=== PATIENT | female | born 1980 | race Caucasian/White ===

== ENCOUNTER → 2016-07-07 | Outpatient (CLI) | payer MEDICAID ==
[~2016-07-07] MED LIST: CIPROFLOXACIN500 MG PO; HCTZ PO; HYDROCHLOROTHIA25 M1 PO; IBUPROFEN800 MG PO; STOOL SOFTENER250 M1 PO
== END ==
LOC: LAB 14:33
DX: N39.0 Urinary tract infection, site not specified (principal)

== ENCOUNTER → 2016-07-10 | Outpatient (CLI) | payer MEDICAID ==
--- NOTE | 2016-07-10 14:33 | RADIOLOGY REPORT PS360 ---
CHEST(2 VIEWS-NOT PORTABLE) HISTORY: COUGH ORDERING PHYSICIAN: Joe Villafana MD PATIENT AGE: 35 years COMPARISON: None available FINDINGS: The cardiomediastinal silhouette and pulmonary vascularity are within normal limits. The lungs are clear without infiltrates, suspicious nodules, or pleural effusions. No acute bony abnormalities. There is evidence of old granulomatous disease IMPRESSION: Negative chest, no acute finding
== END ==
LOC: RAD 13:31
DX: R05 Cough (principal)

== ENCOUNTER → 2016-07-29 | Outpatient (CLI) | payer MEDICAID ==
[2016-07-29 08:58] LABS: HEMOGLOBIN 11.1 g/dL (12.2-16.2); LYMPH # 2.3 K/mm3 (0.7-4.5); LYMPH % 34.9 % (10-50.0)
[2016-07-29 10:10] LABS: BUN 13 mg/dL (7-18)
[2016-07-29 10:14] LABS: GFR (ESTIMATED) 62 ML/MIN (59-)
== END ==
LOC: LAB 08:15
PROVIDERS: Nurse Practitioner Family
DX: N39.0 Urinary tract infection, site not specified (principal)

== ENCOUNTER 2017-02-11 13:23 | Emergency (ER) | payer MEDICAID ==
[~2017-02-11] VITALS: Ht 172.7 cm; Wt 63.5 kg
--- OUTSIDE RECORDS SUMMARY | 2017-02-11 14:49 | External Medical Summary Rpt | CCD ---
Author Author , GIA NIELSEN Address Unknown Phone [email or web address] Care Team Providers Care Owner/Photographer Name Role Phone ATKINS TRA, ATKINS Unavailable Unavailable [facility] Unavailable Unavailable [facility] DAPHNE JUSTINO, DAPHNE Unavailable Unavailable [facility] Unavailable Unavailable CENTER, [facility] Unavailable Unavailable INC, [facility] Unavailable Unavailable [facility]OSPITAL, [facility] Unavailable Unavailable [facility]OSPITAL P, [facility], Unavailable Unavailable [facility], [facility]available Unavailable [facility] Unavailable Unavailable IMAGING ASS, [facility] Unavailable [facility] Unavailable Unavailable LAB, [facility] SC[facility], SCIFRES Unavailable Unavailable [facility] ANG, SCIFRES Unavailable Unavailable ANG [facility] Unavailable [place]available [place], [facility] [place] Purpose Continuity of Care Document - 03-17-2011 through 2016 Problems Code Diagnosis DOS Provider Status Z23 ENCOUNTER 12-17-2016 [facility] IMMUNIZATIO [facility] DEPT N [place] D1720 BENIGN 11-23-2016 [facility] LIPOMATOUS PHYSICIANS NEOPLSM GROUP SKIN & SUBQ UNS LIMB D1739 BENIGN 11-11-2016 [facility] LIPOMATOUS PHYSICIANS NEOPLASM GROUP SKIN & SUBQ OTH SITE D1779 BENIGN 11-11-2016 [facility] NEOPLASM OF OTHER SITES D492 NEOPLASM OF 11-11-2016 [facility] UNS ANESTH OF BEHAVIOR THE BLUE BONE SOFT TISSUE & SKIN [id number] PAIN IN 11-11-2016 [facility] RIGHT UPPER PHYSICIANS ARM GROUP [id number] REGULAR 10-22-2016 [facility] ASTIGMATISM RIGHT EYE J3089 OTHER 08-21-2016 [facility] ALLERGIC PHYSICIANS RHINITIS GROUP J370 CHRONIC 08-21-2016 [facility] LARYNGITIS PHYSICIANS GROUP R062 WHEEZING 08-21-2016 [facility] N390 URINARY 07-28-2016 [facility] TRACT PHYSICIAN INFECTION GROUP SITE NOT SPECIFIED J309 ALLERGIC 07-24-2016 [facility] RHINITIS PHYSICIANS UNSPECIFIED GROUP R05 COUGH 07-24-2016 [facility] PHYSICIANS GROUP N63 UNSPECIFIED 07-17-2016 [place] [facility] [id number] MIGRAINE 07-07-2016 [facility] UNS NOT PHYSICIANS INTRACT W/O GROUP STATUS MIGRAINOSUS J208 ACUTE 06-13-2016 [facility] BRONCHITIS PHYSICIAN DUE TO GROUP OTHER SPEC ORGANISMS J40 BRONCHITIS 03-09-2016 [facility] NOT PHYSICIANS SPECIFIED GROUP ACUTE OR CHRONIC J0190 ACUTE 11-16-2015 [facility] SINUSITIS PHYSICIAN UNSPECIFIED GROUP L237 ALLERGIC 11-16-2015 [facility] CONTACT PHYSICIAN DERMATITIS GROUP D/T PLANTS EXCP FOOD B394 HISTOPLASMO 09-12-2015 [facility] SIS CAPSULATI UNSPECIFIED [id number] ENCOUNTER 04-16-2015 [facility] 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 GENERAL RTN W/O ABNORMAL FIND 5990 URINARY 12-01-2014 [facility] SITE NOT SPECIFIED V2543 SURVEILLANC 11-05-2014 [facility] E PREV PRSC PHYSICIANS IMPL GROUP SUBDERMAL CONTRACEPT V255 INSERTION 11-05-2014 [facility] OF PHYSICIANS IMPLANTABLE GROUP SUBDERMAL CONTRACEPTI VE V069 NEED PROPH 10-02-2014 [facility] W/UNSPEC [facility] DEPT COMB [place] VACCINE 97439 REGULAR 09-20-2014 [facility] ASTIGMATISM 4779 ALLERGIC 09-12-2014 [facility] RHINITIS PHYSICIANS CAUSE GROUP UNSPECIFIED 4610 ACUTE 07-29-2014 [facility] 2167 BENIGN 07-12-2014 AT[facility] TRA NEOPLASM SKIN LOWER LIMB INCLUDING HIP 2281 LYMPHANGIOM 07-12-2014 [facility] TRA A, ANY SITE 08588 OTHER 07-12-2014 [facility] TRA CHRONIC DERMATITIS DUE TO SOLAR RADIATION 69725 UNSPECIFIED 02-20-2014 [facility] TRA VIRAL WARTS V7231 ROUTINE 02-06-2014 [facility] AL EXAMINATION 591 HYDRONEPHRO 01-18-2014 [facility] P 55985 CONGENITAL 01-18-2014 [facility] P URETEROPELV IC JUNCTION V0481 NEED 01-16-2014 [facility] PROPHYLACTI PHYSICIANS C GROUP VACCINATION &INOCULATIO N FLU 5909 UNSPECIFIED 01-08-2014 [place] [facility] V1302 PERSONAL 01-08-2014 [place] [facility] MEDICAL URINARY IMAGING ASS TRACT INFECTION 5959 UNSPECIFIED 01-04-2014 [place] [facility] P 7242 LUMBAGO 12-15-2013 [facility] 57114 OTHER 12-04-2013 AT[facility] TRA SPECIFIED VIRAL WARTS 2165 BENIGN 12-04-2013 AT[facility] TRA NEOPLASM OF SKIN OF TRUNK EXCEPT SCROTUM 38413 HISTOPLASMA 09-14-2013 [facility] CAPSULATUM RETINITIS 41191 FEVER 09-06-2013 DAPHNE JUSTINO UNSPECIFIED 03686 PLANTAR 08-03-2013 DAPHNE JUSTINO WART 2662 OTHER 03-17-2011 [facility] S V1589 OTH SPEC 03-17-2011 PATHOLOGY & PERS HX CYTOLOGY PRESENTING LAB HAZARDS HEALTH OT V2549 SURVEILLANC 03-17-2011 [facility] SC E OTH PREV [facility] CENTER CONTRACEPT METHOD Allergies, Adverse Reactions, Alerts Clinical Alert Notifications Alert Asthma: ICS non-compliance with h/o of SA beta agonist Asthma: non-ICS non-compliance with h/o of SA beta agonist Medications Na ND Rx Da Fi Fi Am Da Di Ph RX Ph St me C No te ll ll ou ys ag ar # ys at rm s nt no ma ic us Or Da si cy ia de te s n re d LO 45 10 11 30 30 00 HO Ac RA 80 -3 -2 .0 00 ME ti TA 20 1- 4- 00 06 TO ve DI 65 20 20 07 WN NE 08 17 17 74 7 61 PH 10 AR MA MG CY TA OF BL ET CY NT HI AN A BI 29 10 11 30 30 00 HO Ac SO 30 -2 -2 .0 00 ME ti NC 00 7- 4- 00 06 TO ve OL 18 20 20 09 WN OL 70 17 17 49 -H [address] AR Z MA 2. CY 5- 6. OF 25 CY MG NT HI TB AN A LO 45 10 11 30 30 00 HO Ac RA 80 -0 -0 .0 00 ME ti TA 20 5- 3- 00 06 TO ve DI 65 20 20 07 WN NE 08 17 17 74 7 61 PH 10 AR MA MG CY TA OF BL ET CY NT HI AN A BI 29 09 10 30 30 00 HO Ac SO 30 -2 -2 .0 00 ME ti NC 00 5- 0- 00 06 TO ve OL 18 20 20 09 WN OL 70 17 17 49 -H [address] AR Z MA 2. CY 5- 6. OF 25 CY MG NT HI TB AN A LO 45 09 10 30 30 00 HO Ac RA 80 -0 -0 .0 00 ME ti TA 20 8- 6- 00 06 TO ve DI 65 20 20 07 WN NE 08 17 17 74 7 61 PH 10 AR MA MG CY TA OF BL ET CY NT HI AN A HY 00 09 09 [address] 60 -0 -2 .0 00 ME ti OC 33 6- 9- 00 02 TO ve OD 89 20 20 01 WN ON 03 17 17 45 -A 2 55 PH CE AR TA MA IA CY NO PH OF EN CY 5- NT 32 HI 5 AN A BI 29 08 09 30 30 00 HO Ac SO 30 -2 -2 .0 00 ME ti NC 00 8- 2- 00 06 TO ve OL 18 20 20 07 WN OL 70 17 17 74 -H [address] AR Z MA 2. CY 5- 6. OF 25 CY MG NT HI TB AN A LO 45 08 09 30 30 00 HO Ac RA 80 -0 -0 .0 00 ME ti TA 20 7- 1- 00 06 TO ve DI 65 20 20 07 WN NE 08 17 17 74 7 61 PH 10 AR MA MG CY TA OF BL ET CY NT HI AN A BI 29 08 08 30 30 00 HO Ac SO 30 -0 -2 .0 00 ME ti NC 00 1- 5- 00 06 TO ve OL 18 20 20 07 WN OL 70 17 17 74 -H [address] AR Z MA 2. CY 5- 6. OF 25 CY MG NT HI TB AN A LO 45 07 07 30 30 00 HO Ac RA 80 -0 -2 .0 00 ME ti TA 20 3- 8- 00 06 TO ve DI 65 20 20 07 WN NE 08 17 17 74 7 61 PH 10 AR MA MG CY TA OF BL ET CY NT HI AN A BI 29 06 07 30 30 00 HO Ac SO 30 -3 -2 .0 00 ME ti NC 00 0- 8- 00 06 TO ve OL 18 20 20 07 WN OL 70 17 17 74 -H [address] AR Z MA 2. CY 5- 6. OF 25 CY MG NT HI TB AN A BI 29 05 06 30 30 00 HO Ac SO 30 -3 -2 .0 00 ME ti NC 00 1- 3- 00 06 TO ve OL 18 20 20 07 WN OL 70 17 17 74 -H [address] AR Z MA 2. CY 5- 6. OF 25 CY MG NT HI TB AN A CE 68 05 06 20 10 00 HO Ac PH 18 -3 -2 .0 00 ME ti AL 00 0- 3- 00 06 TO ve EX 12 20 20 08 WN IN 20 17 17 78 2 66 PH 50 AR 0 MA MG CY CA OF PS UL CY E NT HI AN A MO 68 05 06 30 30 00 HO Ac NT 00 -1 -1 .0 00 ME ti EL 10 9- 6- 00 06 TO ve UK 24 20 20 08 WN 80 17 17 73 T 3 52 PH SO AR D MA 10 CY MG OF TA CY BL NT ET HI AN A ME 68 05 06 21 6 00 HO Ac TH 00 -1 -1 .0 00 ME ti YL 10 9- 6- 00 06 TO ve NC 00 20 20 08 WN ED 50 17 17 73 NI 1 53 PH SO AR LO MA NE CY 4 OF MG CY DO NT SE HI PK AN A CE 68 05 06 20 10 00 HO Ac PH 18 -2 -1 .0 00 ME ti AL 00 3- 6- 00 06 TO ve EX 12 20 20 08 WN IN 20 17 17 76 2 05 PH 50 AR 0 MA MG CY CA OF PS UL CY E NT HI AN A RE 00 05 06 6. 23 00 HO Ac LP 04 -0 -0 00 00 ME ti AX 92 8- 2- 0 06 TO ve 34 20 20 07 WN 40 04 17 17 74 5 63 PH MG AR MA TA CY BL ET OF CY NT HI AN A BI 29 05 05 30 30 00 HO Ac SO 30 -0 -2 .0 00 ME ti NC 00 1- 6- 00 06 TO ve OL 18 20 20 07 WN OL 70 17 17 74 -H [address] AR Z MA 2. CY 5- 6. OF 25 CY MG NT HI TB AN A LO 45 05 05 30 30 00 HO Ac RA 80 -0 -2 .0 00 ME ti TA 20 1- 6- 00 06 TO ve DI 65 20 20 06 WN NE 08 17 17 53 7 67 PH 10 AR MA MG CY TA OF BL ET CY NT HI AN A CI 16 05 05 14 7 00 HO Ac NC 57 -0 -2 .0 00 ME ti OF 10 2- 6- 00 06 TO ve LO 41 20 20 08 WN XA 25 17 17 62 CI 0 10 PH N AR HC MA L CY 50 0 OF MG CY TA NT B HI AN A NC 00 04 05 10 5 00 WA Ac ED 14 -0 -0 .0 00 L- ti NI 39 8- 5- 00 07 MA ve SO 73 20 20 48 RT NE 80 17 17 11 5 75 PH 20 AR MA MG CY TA #5 BL 91 ET VE 00 04 05 18 17 00 WA Ac NT 17 -0 -0 .0 00 L- ti OL 30 8- 5- 00 07 MA ve IN 68 20 20 48 RT 22 17 17 11 HF 0 76 PH A AR 90 MA CY MC G #5 IN 91 [place] LE R BR 60 04 05 18 3 00 WA Ac OM 43 -0 -0 0. 00 L- ti PH 20 8- 5- 00 07 MA ve EN 27 20 20 0 48 RT IR 51 17 17 11 -P 6 77 PH SE AR UD MA OE CY PH ED #5 -D 91 M SY R BI 29 03 04 30 30 00 HO Ac SO 30 -3 -2 .0 00 ME ti NC 00 0- 8- 00 06 TO ve OL 18 20 20 07 WN OL 70 17 17 74 -H [address] AR Z MA 2. CY 5- 6. OF 25 CY MG NT HI TB AN A BI 29 03 03 30 30 00 HO Ac SO 30 -0 -3 .0 00 ME ti NC 00 2- 1- 00 06 TO ve OL 18 20 20 07 WN OL 70 17 17 65 -H [address] AR Z MA 2. CY 5- 6. OF 25 CY MG NT HI TB AN A VE 00 03 03 18 17 00 HO Ac NT 17 -0 -3 .0 00 ME ti OL 30 6- 1- 00 06 TO ve IN 68 20 20 08 WN 22 17 17 26 HF 0 44 PH A AR 90 MA CY MC G OF IN [place] CY LE NT R HI AN A BI 29 01 02 30 30 00 HO Ac SO 30 -3 -2 .0 00 ME ti NC 00 0- 4- 00 06 TO ve OL 18 20 20 07 WN OL 70 17 17 65 -H [address] AR Z MA 2. CY 5- 6. OF 25 CY MG NT HI TB AN A SY 00 01 02 10 30 00 HO Ac MB 18 -1 -0 .1 00 ME ti IC 60 1- 3- 99 06 TO ve OR 37 20 20 07 WN T 02 17 17 74 16 0 59 PH 0- AR 4. MA 5 CY MC G OF IN [place] CY LE NT R HI AN A BR 64 01 01 18 3 00 HO Ac OM 37 -0 -2 0. 00 ME ti PH 60 2- 7- 00 06 TO ve EN 65 20 20 0 07 WN IR 71 17 17 87 -P 6 24 PH SE AR UD MA OE CY PH ED OF -D M CY SY NT R HI AN A NC 59 01 01 10 5 00 HO Ac ED 74 -0 -2 .0 00 ME ti NI 60 2- 7- 00 06 TO ve SO 17 20 20 07 WN NE 50 17 17 87 9 23 PH 20 AR MA MG CY TA OF BL ET CY NT HI AN A LO 45 01 01 30 30 00 HO Ac RA 80 -0 -2 .0 00 ME ti TA 20 2- 7- 00 06 TO ve DI 65 20 20 06 WN NE 08 17 17 53 7 67 PH 10 AR MA MG CY TA OF BL ET CY NT HI AN A BI 29 01 01 30 30 00 HO Ac SO 30 -0 -2 .0 00 ME ti NC 00 2- 7- 00 06 TO ve OL 18 20 20 07 WN OL 70 17 17 65 -H [address] AR Z MA 2. CY 5- 6. OF 25 CY MG NT HI TB AN A SY 00 12 01 10 30 00 HO Ac MB 18 -1 -1 .1 00 ME ti IC 60 3- 3- 99 06 TO ve OR 37 20 20 07 WN T 02 16 17 74 16 0 59 PH 0- AR 4. MA 5 CY MC G OF IN [place] CY LE NT R HI AN A MO 68 12 01 30 30 00 HO Ac NT 00 -1 -1 .0 00 ME ti EL 10 3- 3- 00 06 TO ve UK 24 20 20 07 WN 80 16 17 74 T 3 60 PH SO AR D MA 10 CY MG OF TA CY BL NT ET HI AN A RE 00 12 01 6. 23 00 HO Ac LP 04 -1 -1 00 00 ME ti AX 92 3- 3- 0 06 TO ve 34 20 20 07 WN 40 04 16 17 74 5 63 PH MG AR MA TA CY BL ET OF CY NT HI AN A Encounters Encounter Start End Date Code Location Performer Type Date [facility] - 5 5 [facility] - 4 4 [facility] - 4 4 [facility] - 4 4 [facility] - 4 4 [facility] - 4 4 [facility]
--- OUTSIDE RECORDS SUMMARY | 2017-02-11 14:49 | External Medical Summary Rpt | CCD ---
Author Author , GIA NIELSEN Address Unknown Phone [email or web address] Care Team Providers Care Casino Dealer Name Role Phone ATKINS TRA, ATKINS Unavailable Unavailable [facility] Unavailable Unavailable [facility] DAPHNE JUSTINO, DAPHNE Unavailable Unavailable [facility] Unavailable Unavailable CENTER, [facility] Unavailable Unavailable INC, [facility] Unavailable Unavailable HOSPITAL, [facility] Unavailable Unavailable HOSPITAL P, [facility], Unavailable Unavailable [facility], [facility]available Unavailable [facility] Unavailable Unavailable [facility], [facility] Unavailable [facility] Unavailable Unavailable LAB, [facility] SCIF[facility], SCIFRES Unavailable Unavailable [facility] ANG, SCIFRES Unavailable Unavailable ANG [facility] Unavailable [place]available [place], [facility] [place] Purpose Continuity of Care Document - 03-17-2011 through 2016 Problems Code Diagnosis DOS Provider Status Z23 ENCOUNTER 12-17-2016 [facility] IMMUNIZATIO [facility] DEPT N [place] D1720 BENIGN 11-23-2016 [facility] LIPOMATOUS PHYSICIANS NEOPLSM GROUP SKIN & SUBQ UNS LIMB D1739 BENIGN 11-11-2016 [facility] LIPOMATOUS PHYSICIANS NEOPLASM GROUP SKIN & SUBQ OTH SITE D1779 BENIGN 11-11-2016 [facility] NEOPLASM OF OTHER SITES D492 NEOPLASM OF 11-11-2016 [facility] UNS ANESTH OF BEHAVIOR THE BLUE BONE SOFT TISSUE & SKIN [id number] PAIN IN 11-11-2016 [facility] RIGHT UPPER PHYSICIANS ARM GROUP [id number] REGULAR 10-22-2016 [facility] ASTIGMATISM RIGHT EYE J3089 OTHER 08-21-2016 [facility] ALLERGIC PHYSICIANS RHINITIS GROUP J370 CHRONIC 08-21-2016 [facility] LARYNGITIS PHYSICIANS GROUP R062 WHEEZING 08-21-2016 [facility] N390 URINARY 07-28-2016 [facility] TRACT PHYSICIAN INFECTION GROUP SITE NOT SPECIFIED J309 ALLERGIC 07-24-2016 [facility] RHINITIS PHYSICIANS UNSPECIFIED GROUP R05 COUGH 07-24-2016 [facility] GROUP N63 UNSPECIFIED 07-17-2016 [place] [facility] V83371 MIGRAINE 07-07-2016 [facility] UNS NOT PHYSICIANS INTRACT W/O GROUP STATUS MIGRAINOSUS J208 ACUTE 06-13-2016 [facility] BRONCHITIS PHYSICIAN DUE TO GROUP OTHER SPEC ORGANISMS J40 BRONCHITIS 03-09-2016 [facility] NOT PHYSICIANS SPECIFIED GROUP ACUTE OR CHRONIC J0190 ACUTE 11-16-2015 [facility] SINUSITIS PHYSICIAN UNSPECIFIED GROUP L237 ALLERGIC 11-16-2015 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 E PREV PRSC PHYSICIANS IMPL GROUP SUBDERMAL CONTRACEPT V255 INSERTION 11-05-2014 [facility] OF PHYSICIANS IMPLANTABLE GROUP SUBDERMAL CONTRACEPTI VE V069 NEED PROPH 10-02-2014 [facility] W/UNSPEC [facility] DEPT COMB [place] VACCINE 03057 REGULAR 09-20-2014 [facility] ASTIGMATISM 4779 ALLERGIC 09-12-2014 [facility] RHINITIS PHYSICIANS CAUSE GROUP UNSPECIFIED 4610 ACUTE 07-29-2014 [facility] 2167 BENIGN 07-12-2014 [facility] NEOPLASM SKIN LOWER LIMB INCLUDING HIP 2281 LYMPHANGIOM 07-12-2014 [facility] TRA A, ANY SITE 32856 OTHER 07-12-2014 [facility] TRA CHRONIC DERMATITIS DUE TO SOLAR RADIATION 73784 UNSPECIFIED 02-20-2014 [facility] TRA VIRAL WARTS V7231 ROUTINE 02-06-2014 [facility] AL EXAMINATION 591 HYDRONEPHRO 01-18-2014 [facility] P 85684 CONGENITAL 01-18-2014 [facility] P URETEROPELV IC JUNCTION V0481 NEED 01-16-2014 [facility] PROPHYLACTI PHYSICIANS C GROUP VACCINATION &INOCULATIO N FLU 5909 UNSPECIFIED 01-08-2014 [place] [facility] V1302 PERSONAL 01-08-2014 [place] [facility] URINARY IMAGING ASS TRACT INFECTION 5959 UNSPECIFIED 01-04-2014 [facility] P 7242 LUMBAGO 12-15-2013 [facility] 05396 OTHER 12-04-2013 AT[facility] TRA SPECIFIED VIRAL WARTS 2165 BENIGN 12-04-2013 ATK[facility] TRA NEOPLASM OF SKIN OF TRUNK EXCEPT SCROTUM 39795 HISTOPLASMA 09-14-2013 [facility] CAPSULATUM RETINITIS 44910 FEVER 09-06-2013 DAPHNE JUSTINO UNSPECIFIED 27205 PLANTAR 08-03-2013 DAPHNE JUSTINO WART 2662 OTHER 03-17-2011 [facility] S V1589 OTH SPEC 03-17-2011 PATHOLOGY & PERS HX CYTOLOGY PRESENTING LAB HAZARDS HEALTH OT V2549 SURVEILLANC 03-17-2011 [facility] ME E O[facility] CONTRACEPT [...] 30 -2 -2 .0 00 ME ti AL 00 7- 4- 00 06 TO ve [...] 30 -2 -2 .0 00 ME ti AL 00 5- 0- 00 06 TO ve [...] 2 55 PH CE AR TA MA AK CY NO PH OF EN CY 5- NT 32 HI 5 AN A BI 29 08 09 30 30 00 HO Ac SO 30 -2 -2 .0 00 ME ti AL 00 8- 2- 00 06 TO ve [...] 30 -0 -2 .0 00 ME ti AL 00 1- 5- 00 06 TO ve [...] 30 -3 -2 .0 00 ME ti AL 00 0- 8- 00 06 TO ve OL 18 20 20 07 WN OL 70 17 17 74 -H [address] AR Z MA 2. CY 5- 6. OF 25 CY MG NT HI TB AN A BI 29 05 06 30 30 00 HO Ac SO 30 -3 -2 .0 00 ME ti AL 00 1- 3- 00 06 TO ve [...] 10 9- 6- 00 06 TO ve AL 00 20 20 08 WN ED 50 [...] 30 -0 -2 .0 00 ME ti AL 00 1- 6- 00 06 TO ve [...] 05 05 14 7 00 HO Ac AL 57 -0 -2 .0 00 ME ti OF 10 2- 6- 00 06 TO ve LO 41 20 20 08 WN XA 25 17 17 62 CI 0 10 PH N AR HC MA L CY 50 0 OF MG CY TA NT B HI AN A AL 00 04 05 10 5 00 WA [...] 30 -3 -2 .0 00 ME ti AL 00 0- 8- 00 06 TO ve OL 18 20 20 07 WN OL 70 17 17 74 -H [address] AR Z MA 2. CY 5- 6. OF 25 CY MG NT HI TB AN A BI 29 03 03 30 30 00 HO Ac SO 30 -0 -3 .0 00 ME ti AL 00 2- 1- 00 06 TO ve [...] 30 -3 -2 .0 00 ME ti AL 00 0- 4- 00 06 TO ve [...] CY SY NT R HI AN A AL 59 01 01 10 5 00 HO [...] 30 -0 -2 .0 00 ME ti AL 00 2- 7- 00 06 TO ve [...] End Date Code Location Performer Type Date [facility] - 5 5 [facility] - 4 4 [facility] RADHA - 4 4 [facility] RADHA - 4 4 [facility] 4 4 [facility] RAD[facility] - 4 4 [facility] - 4 4 [facility]
--- OUTSIDE RECORDS SUMMARY | 2017-02-11 14:51 | External Medical Summary Rpt | CCD ---
Author Author , GIA NIELSEN Address Unknown Phone [email or web address] Care Team Providers Care Assurance Services Manager Health Care Name Role Phone ATKINS TRA, ATKINS Unavailable Unavailable TRA [facility] Unavailable Unavailable [facility], [facility]UE DAPHNE JUSTINO, DAPHNE Unavailable Unavailable [facility] Unavailable Unavailable [facility], [facility] Unavailable Unavailable [facility], [facility] Unavailable Unavailable [facility], [facility] Unavailable Unavailable [facility]PITAL P, [facility], Unavailable Unavailable [facility], Unavailable Unavailable [facility] Unavailable Unavailable [facility], [facility] Unavailable [facility] Unavailable Unavailable LAB, [facility] SCIFRES, SCIFRES Unavailable Unavailable SC[facility] ANG, SCIFRES Unavailable Unavailable ANG [facility] Unavailable [place]available [place], [facility] [place] Purpose Continuity of Care Document - 03-17-2011 through 2016 Problems Code Diagnosis DOS Provider Status Z23 ENCOUNTER 12-17-2016 [facility] IMMUNIZATIO [facility] DEPT N [place] D1720 BENIGN 11-23-2016 [facility] LIPOMATOUS PHYSICIANS NEOPLSM GROUP SKIN & SUBQ UNS LIMB D1739 BENIGN 11-11-2016 [facility] LIP[facility]OUS PHYSICIANS NEOPLASM GROUP SKIN & SUBQ OTH SITE D1779 BENIGN 11-11-2016 [facility] NEOPLASM OF OTHER SITES D492 NEOPLASM OF 11-11-2016 [facility] UNS ANESTH OF BEHAVIOR THE BLUE BONE SOFT TISSUE & SKIN [id number] PAIN IN 11-11-2016 [facility] RIGHT UPPER PHYSICIANS ARM GROUP [id number] REGULAR 10-22-2016 [facility] ASTIGMATISM RIGHT EYE J3089 OTHER 08-21-2016 [facility] ALLERGIC PHYSICIANS RHINITIS GROUP J370 CHRONIC 08-21-2016 [facility] LARYNGITIS PHYSICIANS GROUP R062 WHEEZING 08-21-2016 [facility] N390 URINARY 07-28-2016 [facility] TRACT PHYSICIAN INFECTION GROUP SITE NOT SPECIFIED J309 ALLERGIC 07-24-2016 [facility] RHINITIS PHYSICIANS UNSPECIFIED GROUP R05 COUGH 07-24-2016 [facility] N63 UNSPECIFIED 07-17-2016 [place] [facility] [id number] MIGRAINE 07-07-2016 [facility] UNS NOT PHYSICIANS INTRACT W/O GROUP STATUS MIGRAINOSUS J208 ACUTE 06-13-2016 [facility] BRONCHITIS PHYSICIAN DUE TO GROUP OTHER SPEC ORGANISMS J40 BRONCHITIS 03-09-2016 [facility] NOT PHYSICIANS SPECIFIED GROUP ACUTE OR CHRONIC J0190 ACUTE 11-16-2015 [facility] SINUSITIS PHYSICIAN UNSPECIFIED GROUP L237 ALLERGIC 11-16-2015 [facility] CONTACT PHYSICIAN DERMATITIS GROUP D/T PLANTS EXCP FOOD B394 HISTOPLASMO 09-12-2015 [facility] SIS CAPSULATI UNSPECIFIED [id number] ENCOUNTER 04-16-2015 [facility] 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 GENERAL RTN W/O ABNORMAL FIND 5990 URINARY 12-01-2014 [facility]PITAL SITE NOT SPECIFIED V2543 SURVEILLANC 11-05-2014 [facility] E PREV PRSC PHYSICIANS IMPL GROUP SUBDERMAL CONTRACEPT V255 INSERTION 11-05-2014 [facility] OF PHYSICIANS IMPLANTABLE GROUP SUBDERMAL CONTRACEPTI VE V069 NEED PROPH 10-02-2014 [facility] W/UNSPEC [facility] DEPT COMB [place] VACCINE 44311 REGULAR 09-20-2014 [facility] ANG ASTIGMATISM 4779 ALLERGIC 09-12-2014 [facility] RHINITIS PHYSICIANS CAUSE GROUP UNSPECIFIED 4610 ACUTE 07-29-2014 [facility]OSPITAL 2167 BENIGN 07-12-2014 AT[facility] TRA NEOPLASM SKIN LOWER LIMB INCLUDING HIP 2281 LYMPHANGIOM 07-12-2014 ATKINS TRA A, ANY SITE 86467 OTHER 07-12-2014 AT[facility] TRA CHRONIC DERMATITIS DUE TO SOLAR RADIATION 07320 UNSPECIFIED 02-20-2014 ATKINS TRA VIRAL WARTS V7231 ROUTINE 02-06-2014 [facility]YNECOLOGIC [facility] AL EXAMINATION 591 HYDRONEPHRO 01-18-2014 [facility] P 84818 CONGENITAL 01-18-2014 [facility] P URETEROPELV IC JUNCTION V0481 NEED 01-16-2014 [facility] PROPHYLACTI PHYSICIANS C GROUP VACCINATION &INOCULATIO N FLU 5909 UNSPECIFIED 01-08-2014 [place] [facility] V1302 PERSONAL 01-08-2014 [place] [facility] URINARY IMAGING ASS TRACT INFECTION 5959 UNSPECIFIED 01-04-2014 [place] [facility] P 7242 LUMBAGO 12-15-2013 [facility] INC 29271 OTHER 12-04-2013 ATK[facility] TRA SPECIFIED VIRAL WARTS 2165 BENIGN 12-04-2013 ATKINS TRA NEOPLASM OF SKIN OF TRUNK EXCEPT SCROTUM 80905 HISTOPLASMA 09-14-2013 [facility] CAPSULATUM RETINITIS 12069 FEVER 09-06-2013 DAPHNE JUSTINO UNSPECIFIED 87362 PLANTAR 08-03-2013 DAPHNE JUSTINO WART 2662 OTHER 03-17-2011 [facility] S V1589 OTH SPEC 03-17-2011 PATHOLOGY & PERS HX CYTOLOGY PRESENTING LAB [facility] OTH V2549 SURVEILLANC 03-17-2011 [facility] E OTH PREV HEALTH PRSC CENTER CONTRACEPT METHOD Medications Na ND Rx Da Fi Fi [...] 30 -2 -2 .0 00 ME ti OH 00 7- 4- 00 06 TO ve [...] 30 -2 -2 .0 00 ME ti OH 00 5- 0- 00 06 TO ve [...] 2 55 PH CE AR TA MA UT CY NO PH OF EN CY 5- NT 32 HI 5 AN A BI 29 08 09 30 30 00 HO Ac SO 30 -2 -2 .0 00 ME ti [place] 00 8- 2- 00 06 TO ve [...] 30 -0 -2 .0 00 ME ti OH 00 1- 5- 00 06 TO ve [...] 30 -3 -2 .0 00 ME ti OH 00 0- 8- 00 06 TO ve [...] UL CY E NT HI AN A BI 29 05 06 30 30 00 HO Ac SO 30 -3 -2 .0 00 ME ti OH 00 1- 3- 00 06 TO ve [...] 10 9- 6- 00 06 TO ve OH 00 20 20 08 WN ED 50 17 17 73 NI 1 53 PH SO AR LO MA NE CY 4 OF MG CY DO NT SE HI PK AN A RE 00 05 06 6. [...] 30 -0 -2 .0 00 ME ti OH 00 1- 6- 00 06 TO ve [...] 05 05 14 7 00 HO Ac OH 57 -0 -2 .0 00 ME ti OF 10 2- 6- 00 06 TO ve LO 41 20 20 08 WN XA 25 17 17 62 CI 0 10 PH N AR HC MA L CY 50 0 OF MG CY TA NT B HI AN A OH 00 04 05 10 5 00 WA [...] 30 -3 -2 .0 00 ME ti OH 00 0- 8- 00 06 TO ve OL 18 20 20 07 WN OL 70 17 17 74 -H [address] AR Z MA 2. CY 5- 6. OF 25 CY MG NT HI TB AN A BI 29 03 03 30 30 00 HO Ac SO 30 -0 -3 .0 00 ME ti OH 00 2- 1- 00 06 TO ve [...] 30 -3 -2 .0 00 ME ti OH 00 0- 4- 00 06 TO ve [...] CY SY NT R HI AN A BI 29 01 01 30 30 00 HO Ac SO 30 -0 -2 .0 00 ME ti OH 00 2- 7- 00 06 TO ve OL 18 20 20 07 WN OL 70 17 17 65 -H [address] AR Z MA 2. CY 5- 6. OF 25 CY MG NT HI TB AN A LO 45 01 01 30 30 00 HO Ac RA 80 -0 -2 .0 00 ME ti TA 20 2- 7- 00 06 TO ve DI 65 20 20 06 WN NE 08 17 17 53 7 67 PH 10 AR MA MG CY TA OF BL ET CY NT HI AN A OH 59 01 01 10 5 00 HO Ac ED 74 -0 -2 .0 00 ME ti NI 60 2- 7- 00 06 TO ve SO 17 20 20 07 WN NE 50 17 17 87 9 23 PH 20 AR MA MG CY TA OF BL ET CY NT HI AN A SY 00 12 01 10 [...] End Date Code Location Performer Type Date [facility] RADHA - 5 5 [facility] RADHA - 4 4 [facility] RAD[facility] - 4 4 [facility] RAD[facility] - 4 4 [facility] - 4 4 [facility] 4 [facility] - 4 4 [facility] 4 [facility]
--- OUTSIDE RECORDS SUMMARY | 2017-02-11 14:51 | External Medical Summary Rpt | CCD ---
Author Author , GIA NIELSEN Address Unknown Phone [email or web address] Care Team Providers Care National Business Director Name Role Phone ATKINS TRA, ATKINS Unavailable Unavailable TRA [facility] Unavailable Unavailable THE [facility], [facility] THE [facility]UE DAPHNE JUSTINO, DAPHNE Unavailable Unavailable [facility] Unavailable Unavailable CENTER, [facility] Unavailable Unavailable INC, [facility] Unavailable Unavailable HOSPITAL, [facility] Unavailable Unavailable [facility] P, [facility], Unavailable Unavailable [facility], Unavailable Unavailable [facility] Unavailable Unavailable [facility], [facility] Unavailable [facility] Unavailable Unavailable LAB, [facility] SCIFRES, SCIFRES Unavailable Unavailable SC[facility] ANG, SCIFRES Unavailable Unavailable ANG [facility] Unavailable [place]available [place], [facility] [place] Purpose Continuity of Care Document - 03-17-2011 through 2016 Problems Code Diagnosis DOS Provider Status Z23 ENCOUNTER 12-17-2016 [facility] IMMUNIZATIO [facility] DEPT N [place] D1720 BENIGN 11-23-2016 [facility] LIPOMATOUS PHYSICIANS NEOPLSM GROUP SKIN & SUBQ UNS LIMB D1739 BENIGN 11-11-2016 [facility] LIPOMATOUS PHYSICIANS NEOPLASM GROUP SKIN & SUBQ OTH SITE D1779 BENIGN 11-11-2016 [facility] NEOPLASM OF OTHER SITES D492 NEOPLASM OF 11-11-2016 [facility] UNS ANESTH OF BEHAVIOR THE BLUE BONE SOFT TISSUE & SKIN [id number] PAIN IN 11-11-2016 [facility] RIGHT UPPER PHYSICIANS ARM GROUP P87461 REGULAR 10-22-2016 [facility] ASTIGMATISM RIGHT EYE J3089 OTHER 08-21-2016 [facility] ALLERGIC PHYSICIANS RHINITIS GROUP J370 CHRONIC 08-21-2016 [facility] LARYNGITIS PHYSICIANS GROUP R062 WHEEZING 08-21-2016 [facility] PHYSICIANS GROUP N390 URINARY 07-28-2016 [facility] TRACT PHYSICIAN INFECTION GROUP SITE NOT SPECIFIED J309 ALLERGIC 07-24-2016 [facility] RHINITIS PHYSICIANS UNSPECIFIED GROUP R05 COUGH 07-24-2016 [facility] PHYSICIANS GROUP N63 UNSPECIFIED 07-17-2016 [place] [facility] F62123 MIGRAINE 07-07-2016 [facility] UNS NOT PHYSICIANS INTRACT W/O GROUP STATUS MIGRAINOSUS J208 ACUTE 06-13-2016 [facility] BRONCHITIS PHYSICIAN DUE TO GROUP OTHER SPEC ORGANISMS J40 BRONCHITIS 03-09-2016 [facility] NOT PHYSICIANS SPECIFIED GROUP ACUTE OR CHRONIC J0190 ACUTE 11-16-2015 [facility] SINUSITIS PHYSICIAN UNSPECIFIED GROUP L237 ALLERGIC 11-16-2015 [facility] CONTACT PHYSICIAN DERMATITIS GROUP D/T PLANTS EXCP FOOD B394 HISTOPLASMO 09-12-2015 [facility] SIS CAPSULATI UNSPECIFIED X76808 ENCOUNTER 04-16-2015 [facility] [employer] SALES CONSULTANT EXAM LLC GENERAL RTN W/O ABNORMAL FIND 5990 URINARY 12-01-2014 [facility] SITE NOT SPECIFIED V2543 SURVEILLANC 11-05-2014 [facility] E PREV PRSC PHYSICIANS IMPL GROUP SUBDERMAL CONTRACEPT V255 INSERTION 11-05-2014 [facility] OF PHYSICIANS IMPLANTABLE GROUP SUBDERMAL CONTRACEPTI VE V069 NEED PROPH 10-02-2014 [facility] W/UNSPEC [facility] DEPT COMB [place] VACCINE 11051 REGULAR 09-20-2014 [facility] ASTIGMATISM 4779 ALLERGIC 09-12-2014 [facility] RHINITIS PHYSICIANS CAUSE GROUP UNSPECIFIED 4610 ACUTE 07-29-2014 [facility] 2167 BENIGN 07-12-2014 [facility] NEOPLASM SKIN LOWER LIMB INCLUDING HIP 2281 LYMPHANGIOM 07-12-2014 [facility] TRA A, ANY SITE 66053 OTHER 07-12-2014 [facility] CHRONIC DERMATITIS DUE TO SOLAR RADIATION 42147 UNSPECIFIED 02-20-2014 [facility] VIRAL WARTS V7231 ROUTINE 02-06-2014 [facility] AL EXAMINATION 591 HYDRONEPHRO 01-18-2014 [facility] P 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 [facility] P URETEROPELV IC JUNCTION V0481 NEED 01-16-2014 [facility] PROPHYLACTI PHYSICIANS C GROUP VACCINATION &INOCULATIO N FLU 5909 UNSPECIFIED 01-08-2014 [place] [facility] IM[facility] V1302 PERSONAL 01-08-2014 [place] [facility]ICAL URINARY IMAGING ASS TRACT INFECTION 5959 UNSPECIFIED 01-04-2014 [place] [facility] P 7242 LUMBAGO 12-15-2013 [facility] 33070 OTHER 12-04-2013 [facility] SPECIFIED VIRAL WARTS 2165 BENIGN 12-04-2013 [facility] NEOPLASM OF SKIN OF TRUNK EXCEPT SCROTUM 42942 HISTOPLASMA 09-14-2013 [facility] CAPSULATUM RETINITIS 91009 FEVER 09-06-2013 DAPHNE JUSTINO UNSPECIFIED 71669 PLANTAR 08-03-2013 DAPHNE JUSTINO WART 2662 OTHER [...] 30 -2 -2 .0 00 ME ti MT 00 7- 4- 00 06 TO ve [...] 30 -2 -2 .0 00 ME ti MT 00 5- 0- 00 06 TO ve [...] 2 55 PH CE AR TA MA NH CY NO PH OF EN CY 5- NT 32 HI 5 AN A BI 29 08 09 30 30 00 HO Ac SO 30 -2 -2 .0 00 ME ti MT 00 8- 2- 00 06 TO ve [...] 30 -0 -2 .0 00 ME ti MT 00 1- 5- 00 06 TO ve [...] 30 -3 -2 .0 00 ME ti MT 00 0- 8- 00 06 TO ve [...] 30 -3 -2 .0 00 ME ti MT 00 1- 3- 00 06 TO ve [...] 10 9- 6- 00 06 TO ve MT 00 20 20 08 WN ED 50 [...] 30 -0 -2 .0 00 ME ti MT 00 1- 6- 00 06 TO ve [...] 05 05 14 7 00 HO Ac MT 57 -0 -2 .0 00 ME ti OF 10 2- 6- 00 06 TO ve LO 41 20 20 08 WN XA 25 17 17 62 CI 0 10 PH N AR HC MA L CY 50 0 OF MG CY TA NT B HI AN A MT 00 04 05 10 5 00 WA [...] 30 -3 -2 .0 00 ME ti MT 00 0- 8- 00 06 TO ve OL 18 20 20 07 WN OL 70 17 17 74 -H [address] AR Z MA 2. CY 5- 6. OF 25 CY MG NT HI TB AN A BI 29 03 03 30 30 00 HO Ac SO 30 -0 -3 .0 00 ME ti MT 00 2- 1- 00 06 TO ve [...] 30 -3 -2 .0 00 ME ti MT 00 0- 4- 00 06 TO ve [...] 30 -0 -2 .0 00 ME ti MT 00 2- 7- 00 06 TO ve [...] BL ET CY NT HI AN A MT 59 01 01 10 5 00 HO [...] End Date Code Location Performer Type Date [facility] - 5 5 [facility] RAD[facility] - 4 4 [facility] RAD[facility] - 4 4 [facility] RAD[facility] - 4 4 [facility] - 4 4 [facility] 4 [facility] 4 [facility]
--- OUTSIDE RECORDS SUMMARY | 2017-02-11 14:52 | External Medical Summary Rpt ---
Author Author [employer], FREDJAYMIE Production Organization [employer] Address Unknown Phone Unavailable Results Choriogonadotropin.beta subunit [Units] in 24 hour Urine Observa Value Referen Units Interpr Notes Date tion ce etation Range COMMENTS TO DIRECTOR OF FRONT OFFICE: GOTTEN IN PREOP Choriogon NEG No No Fara Sep 6 adotropin informati informati 2016 8:10 .beta on in on in AM subunit source source [Units] data data in 24 hour Urine Comprehensive metabolic 2000 panel in Serum or Plasma Observa Value Referen Units Interpr Notes Date tion ce etation Range Albumin/G 1.1 - 1.8 No Low No July 29 lobulin informati informati 2016 8:16 [Mass on in on in AM ratio] in source source Serum or data data Plasma Albumin 3.4 - 5.0 gm/dL Normal No July 29 [Mass/vol informati 2016 8:16 ume] in on in AM Serum or source Plasma data Alkaline 46 - 116 U/L Normal No July 29 phosphata informati 2016 8:16 se on in AM [Enzymati source c data activity/ volume] in Serum or Plasma Bilirubin 0.2 - 1.0 mg/dL Normal No July 29 .total informati 2016 8:16 [Mass/vol on in AM ume] in source Serum or data Plasma Urea 7 - 18 mg/dL Normal No July 29 nitrogen informati 2016 8:16 [Mass/vol on in AM ume] in source Serum or data Plasma Calcium 8.5 - mg/dL Normal No July 29 [Mass/vol 10.1 informati 2016 8:16 ume] in on in AM Serum or source Plasma data Chloride 98 - 107 mmoL/L Normal No July 29 [Moles/vo informati 2016 8:16 lume] in on in AM Serum or source Plasma data Carbon 21.0 - mmoL/L Normal No July 29 dioxide, 32.0 informati 2016 8:16 total on in AM [Moles/vo source lume] in data Serum or Plasma Creatinin 0.55 - mg/dL Normal No July 29 e 1.02 informati 2016 8:16 [Mass/vol on in AM ume] in source Serum or data Plasma Estimated 59- ML/MIN No REFERENCE July 29 informati RANGE: 2016 8:16 glomerula on in >60 AM r source ML/MIN/1. filtratio data 73 SQUARE n rate METERSIf (GF this patient is -A merican, then multiply theresult by 1.210. Globulin 1.3 - 3.2 gm/dL High No July 29 [Mass/vol informati 2016 8:16 ume] in on in AM Serum source data Glucose 74 - 106 mg/dL Normal No July 29 [Mass/vol informati 2016 8:16 ume] in on in AM Serum or source Plasma data Potassium 3.5 - 5.1 mmoL/L Normal No July 292016 8:16 [Moles/vo on in AM lume] in source Serum or data Plasma Sodium 136 - 145 mmoL/L Normal No July 29 [Moles/vo informati 2016 8:16 lume] in on in AM Serum or source Plasma data Aspartate 15 - 37 U/L Low No July 29 inform2016 8:16 aminotran on in AM sferase source [Enzymati data c activity/ volume] in Serum or Plasma Alanine 12 - 78 U/L Normal No July 29 aminotran informati 2016 8:16 sferase on in AM [Enzymati source c data activity/ volume] in Serum or Plasma Protein 6.4 - 8.2 gm/dL Normal No July 29 [Mass/vol informati 2016 8:16 ume] in on in AM Serum or source Plasma data CBC W Auto Differential panel in Blood Observa Value Referen Units Interpr Notes Date tion ce etation Range Basophils 0 - 0.2 K/MM3 Normal No July 29 informati 2016 8:16 [#/volume on in AM ] in source Blood by data Automated count Basophils 0.1 - 2.0 % Normal No July 29 / informati 2016 8:16 leukocyte on in AM s in source Blood by data Automated count Eosinophi 0.0 - 0.4 K/mm3 Normal No July 29 ls informati 2016 8:16 [#/volume on in AM ] in source Blood by data Automated count Eosinophi 0.1 - % Normal No July 29 ls/100 12.0 informati 2017 8:16 leukocyte on in AM s in source Blood by data Automated count Granulocy 1.8 - 7.8 K/mm3 Normal No July 29 kaleb informati 2016 8:16 [#/volume on in AM ] in source Blood by data Automated count Granulocy 37.0 - % Normal No July 29 kaleb/100 80.0 informati 2016 8:16 leukocyte on in AM s in source Blood by data Automated count Hematocri 37.0 - % Low No July 29 t [Volume 47.0 informati 2016 8:16 on in AM Fraction] source of Blood data Hemoglobi 12.2 - g/dL Low No July 29 n 16.2 informati 2016 8:16 [Mass/vol on in AM ume] in source Blood data Lymphocyt 0.7 - 4.5 K/mm3 Normal No July 29 es informati 2016 8:16 [#/volume on in AM ] in source Unspecifi data ed specimen by Automated count Lymphocyt 10 - 50.0 % Normal No July 29 es informati 2016 8:16 [#/volume on in AM ] in source Unspecifi data ed specimen by Automated count Erythrocy 27 - 31.2 pg Normal No July 29 te mean informati 2016 8:16 corpuscul on in AM ar source hemoglobi data n [Entitic mass] Erythrocy 31.8 - g/dl Normal July 29 te mean 35.4 informati 2016 8:16 corpuscul on in AM ar source hemoglobi data n concentra tion [Mass/vol ume] by Automated count Erythrocy 82.2 - fl Normal No July 29 te mean 97.8 informati 2016 8:16 corpuscul on in AM ar volume source [Entitic data volume] by Automated count Monocytes 0.1 - 1.0 K/mm3 Normal No July 29 informati 2016 8:16 [#/volume on in AM ] in source Blood by data Automated count Monocytes 1.7 - 9.3 % Normal No July 29 informati 2016 8:16 leukocyte on in AM s in source Blood by data Automated count Platelet 7.4 - fl Low No July 29 mean 10.4 informati 2016 8:16 volume on in AM [Entitic source volume] data in Blood by Automated count Platelets 142 - 424 K/mm3 No July 29 informati informati 2016 8:16 [#/volume on in on in AM ] in source source Blood data data Erythrocy 4.2 - 5.4 M/mm3 Low No July 29 kaleb informati 2016 8:16 [#/volume on in AM ] in source Amniotic data fluid Erythrocy 11.5 - % Normal No July 29 te 17.5 informati 2016 8:16 distribut on in AM ion width source [Entitic data volume] by Automated count Leukocyte 4.8 - K/MM3 Normal No July 29 s 10.8 informati 2016 8:16 [#/volume on in AM ] in source Blood data
--- OUTSIDE RECORDS SUMMARY | 2017-02-11 14:52 | External Medical Summary Rpt ---
Author Author [employer], FREDJAYMIE Production Organization [employer] Address Unknown Phone Unavailable Results Choriogonadotropin.beta subunit [Units] in 24 hour Urine Observa Value Referen Units Interpr Notes Date tion ce etation Range COMMENTS TO WIRE COINER: GOTTEN IN PREOP Choriogon NEG No No [...]
--- OUTSIDE RECORDS SUMMARY | 2017-02-11 14:52 | External Medical Summary Rpt | CCD ---
Author Author , MESERET NIELSEN Address Unknown Phone [email or web address] Immunization Name Date Rout CVX Reac Dose Comm Prov Is Faci e tion ent ider Refu lity Give sed n HepA 07-2 104 999 Hist H149 No H149 /B 8-20 ori (TWI 15 al NRIX Info ) rmat ion - Sour ce Unsp ecif ied Tdap 09-0 115 999 Hist H149 No H149 , 3-20 [facility] Adso 13 al rbed Info rmat ion - Sour ce Unsp ecif ied
--- OUTSIDE RECORDS SUMMARY | 2017-02-11 14:52 | External Medical Summary Rpt | CCD ---
Author Author , MESERET NIELSEN Address Unknown Phone [email or web address] Immunization Name Date Rout CVX Reac Dose Comm Prov Is Faci e tion ent ider Refu lity Give sed n HepA 07-2 104 999 Hist H149 No H149 /B 8-20 ori (TWI 15 al NRIX Info ) rmat ion - Sour ce Unsp ecif ied Tdap 09-0 115 999 Hist H149 No H149 , 3-20 [facility] Adso 13 al rbed Info rmat ion - Sour ce Unsp ecif ied
[2017-02-11] MEDS ORDERED: MEDROL 4MG. DOSE4 MG PO (14:53)
[2017-02-11] MEDS ORDERED: ZITHROMAX Z PA250 MG PO (14:53)
[2017-02-11] MEDS ORDERED: FLONASE 50 MCG16 GM (14:53)
[2017-02-11] MEDS ORDERED: BROMFED DM COU118 ML PO (14:53)
--- NOTE | 2017-02-11 14:54 | [facility] Report ---
History of Present Issue Date/Time Seen by Provider 02/11/17 3016 Visit Reason Pt arrived:Walked Presenting Problem:SORE THROAT BEGAN WEDNESDAY Location if Accident: Onset of symptoms date/time:/ or onset unknown for:MEDICAL HX UNKNOWN Have you (or family members/close friends) recently traveled outside the [place]? N If Yes, where/when: Have you had exposure to infectious disease within the past month? TB? Other? Specify: Patient states that she has not been feeling well States that she has had sore throat cough and sinus pain and congestion for several days now State that it has continued to get worse over the last 2-3 days State that she noticed that her throat looked red and irritated and drainage in the back of her throat ALLERGIES Coded Allergies: latex (Intermediate, I-HIVES 11/11/16) Cephalosporins (11/11/16) Penicillins (11/11/16) Sulfa (Sulfonamide Antibiotics) (11/11/16) cefaclor (11/11/16) doxepin (11/11/16) morphine (11/11/16) Home Medications Reported Medications [HCTZ] 1 TAB PO DAILY Ibuprofen (Ibuprofen 800MG) 800 MG PO Q6HP PRN FEVER Docusate Sodium (Stool Softener) 250 MG PO DAILY HYDROCHLOROTHIAZIDE (Hydrochlorothiazide) 25 MG PO DAILY History Medical History General Angina: No [place]: No Hypertension? No Hyperlipidemia? No CHF? No COPD? No Asthma? No Hernia? No CVA? No Seizures? No Diabetes? No UTI? Yes Stones? No GB Disease: No Hepatitis? No Cataracts? No Glaucoma? No MRSA? No TB? No Cancer? 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 Respiratory cough Physical Exam Vital Signs Vital Signs Date Time Temp Pulse Resp B/P Pulse O2 O2 Flow FiO2 Ox Delivery Rate 02/11 1409 98.0 80 16 104/68 98 General Appearance normal appearance, WD/WN, no apparent distress Ear, Nose, Throat sinus pain/drainage, nasal congestion, tenderness noted maxillary sinus, drainage noted in back of throat red, and irritated Respiratory Status Yes: trachea midline, chest symmetrical, non tender chest. No: respiratory distress. Cardiovascular normal exam, regular rate/rhythm Neurologic alert, normal exam, oriented x 3 Medical Decision Making LABS/Meds/Orders Pt receiving controlled substance in ED? No Departure Departure Time of Disposition 1450 Disposition DC Home or Self Care(routine) Clinical Impression Primary Impression: Upper respiratory infection Qualifiers: URI type: unspecified URI Qualified Code: J06.9 - Acute upper respiratory infection, unspecified Condition STABLE Referrals Broderick MARK,Joe Saravia (Family): 3 Days-Call Office Patient Instructions Cough, DI for Sinusitis, Sore Throat Additional Instructions * Monitor Temp. Tylenol and/or Ibuprofen as needed. ER if fever is no less than 101 despite alternating Tylenol and Ibuprofen * Encourage fluids, water, Gatorade, powerade, pedialyte if infant/toddler/or child * Warm salt water gargles for throat irritation *Warm fluids *Sore throat lozenges *Sleep elevated *humidifier or vaporizer Lots of rest Increase fluids, water, Gatorade, powerade *Flonase 2 sprays each nostril daily but may take 2-3 days to notice improvement with it *Bromfed may cause drowsiness. Know how it effect you or your child. Before driving, caring for small children or sending your child to school Follow up IMMEDIATELY for new or worsening of symptoms OR no noticeable improvement over the next 48-72 hours. 911 immediately for any life threatening symptoms such as chest pain or difficulty breathing Discharge Counseling Counseled pt/family regarding diagnosis, medications/RX, home care, follow up needs Prescriptions Current Visit Scripts Azithromycin (Zithromycin (Z-JOE) 250MG Tab) 250 MG PO DAILY #6 TAB TAKE TWO (2) TABLETS ON DAY 1, THEN ONE (1) TABLET DAY #2 THRU #5 D-METHORPHAN HB/P-EPD HCL/BPM (Bromfed Dm Cough Syrup) 10 ML PO Q4HP PRN cough #150 SYR Fluticasone Propionate (Flonase 50 Mcg Nasal [place]) 2 SPRAY NA DAILY #1 BOT Methylprednisolone (Medrol Dose Joe) 4 MG PO UD #1 JOE TAKE DIRECTED ON PACKAGING at 5749
[2017-02-11 15:03] VITALS: BP 104/68
== END 2017-02-11 15:04 | disposition home or self-care (01) ==
LOC: UTC 13:23
DX: J06.9 Acute upper respiratory infection, unspecified (principal)